=== PATIENT | female | born 1945 | race Hispanic/Latino ===

== ENCOUNTER 2020-10-10 11:39 | Emergency (ER) | payer MEDICARE ==
[2020-10-10] MEDS ORDERED: niCARdipine DRIP 40 MG/200 ML BAG IV ONE (12:11)
--- NOTE | 2020-10-10 12:18 | Cat Scan Report ---
CT head/brain wo con INDICATION / CLINICAL INFORMATION: 74 years Female; MAIN. TECHNIQUE: Routine CT head without contrast. All CT scans at this location are performed using CT dos e reduction for ALARA by means of automated exposure control. COMPARISON: None. FINDINGS: BRAIN / INTRACRANIAL CONTENTS: There is acute hematoma centered within the right paramedian cerebellu m measuring 3.8 cm AP by 3.7 cm transverse in greatest dimensions. There is notable a surrounding panda ma and mass effect with effacement of the fourth ventricle and right quadrigeminal cistern. There als o appears be component of hemorrhage extending within the fourth ventricle as well as the foramen of Luschka. Again, no previous exams are available for comparison. There is mild prominence of the later al and third ventricles and continued follow-up would be recommended to exclude developing hydrocepha cal. The hemorrhage may be on a hypertensive basis given the location. 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 There is milder degree of cerebral atrophy. ORBITS: No significant abnormality of visualized orbits. SINUSES / MASTOIDS: No significant abnormality in the visualized paranasal sinuses or mastoid air jane ls. CRANIOCERVICAL JUNCTION: No significant abnormality. ADDITIONAL FINDINGS: None. IMPRESSION: 1. There is acute hematoma within the cerebellum with associated mass effect and intraventricular ext ension as detailed above. 2. Is milder prominence of the lateral and third ventricles on this single exam and continued follow- up exam would be recommended to exclude developing hydrocephalus. The findings represent a positive clinical test result and were discovered at 1109 AM and called to Verónica Lorenzo in the ER at 11:11 AM Central standard time. Signer Name: Zhao Greco MD Signed: 10/10/2020 12:14 PM Workstation Name: [id number]
--- NOTE | 2020-10-10 12:24 | Emergency Department Report ---
ED Neuro Deficit HPI - General Stated Complaint: POSS CVA Time Seen by Provider: 10/10/20 11:44 - History of Present Illness Initial Comments: This is a 74-year-old female who fell approximately 4 times at home. She was found to be severely hypertensive in the field complaining of a headache. With this information I called a code stroke to expedite her work-up. At the door conducting a quick NIHSS, the patient told me she had some neck pain and diffuse headache. She seems to have a left gaze preference and some mild drift of her left leg which she states is chronic. She has bilateral Dupuytren's contractures. She did not complain of acute weakness or numbness of her extremities nor face. She referred no other specific symptoms. It appears that she may be noncompliant with her blood pressure medicine. History was abbreviated to expedite her transfer to CT. The patient denied syncope/passing out. But she is giving a somewhat vague history. She denies any injury. While she states that she does have some diffuse neck pain she denies actually hitting her head or jerking her neck. I walked to CT and found that the patient did have an intracranial hemorrhage which was suspected. I was told by nursing that the neurology consult had requested CTA studies. As such, this was ordered while the patient was on the table. Meanwhile I paged [facility] to begin the transfer process. CT upon my reading indicated that the patient had had a right cerebral hemorrhage with some extension into the fourth ventricle and perhaps early signs of intracranial hypertension. Later the radiologist called and verified those findings stating that the dimensions of the bleed were 3.7 x 3.8 with very early signs of hydrocephalus. -: This morning Location: altered Presenting Symptoms: Present: Altered Mental Status History of same: No Place: home Severity: moderate Quality: constant Improves With: none Worsens With: none On Anticoagulants: No Context: other (Uncertain onset but headache noted at about 9 AM) Associated Symptoms: denies other symptoms Treatments Prior to Arrival: none - Related Data Home Medications: Home Medications Medication Instructions Recorded Confirmed Last Taken No Known Home Medications [No 10/10/20 10/10/20 Unknown Reported Home Medications] Allergies/Adverse Reactions: Allergies Allergy/AdvReac Type Severity Reaction Status Date / Time No Known Allergies Allergy Verified 10/10/20 12:44 ED Review of Systems ROS: Stated complaint: POSS CVA Other details as noted in HPI Comment: Unobtainable due to pts medical conditions (No other specific symptoms mentioned, limited secondary to mental status) ED Past Medical Hx - Past Medical History Hx Hypertension: Yes - Surgical History Past Surgical History?: Yes Additional Surgical History: Patient had a left lower extremity surgery of some sort 5 years ago per paramedics. - Family History Family history: other (Unknown) - Social History Substance Use Type: None (Unlikely) - Medications Home Medications: Home Medications Medication Instructions Recorded Confirmed Last Taken Type No Known Home Medications [No 10/10/20 10/10/20 Unknown History Reported Home Medications] ED Neuro Physical Exam - General Limitations: Altered Mental Status (Patient is noted to have memory deficit) General appearance: other (Tendency to close eyes but normally responsive. GCS 14-15) Suspected Stroke: Yes - Head Head exam: Present: atraumatic - Eye Eye exam: Present: normal appearance. Absent: scleral icterus - ENT ENT exam: Present: normal exam, mucous membranes moist - Neck Neck exam: Present: full ROM (Reasonably full for age). Absent: tenderness, meningismus - Respiratory Respiratory exam: Present: normal lung sounds bilaterally. Absent: respiratory distress - Cardiovascular Cardiovascular Exam: Present: regular rate, normal rhythm. Absent: systolic murmur, diastolic murmur, rubs, gallop - GI/Abdominal GI/Abdominal exam: Present: soft, normal bowel sounds. Absent: distended, tenderness, guarding, rebound - Extremities Exam Extremities exam: Present: other - Back Exam Back exam: Present: other (Unable to examine) - Neurological Exam Neurological exam: Present: altered (Poor memory) - NIHSS Assessment Interval: Baseline 1a. Level of Consciousness: alert/keenly responsive 1b. LOC Questions: answers both correctly 1c. LOC Commands: performs tasks correctly 2. Best Gaze: partial gaze palsy (Definite tendency to look to the left but no extraocular motor palsy) 3. Visual: no visual loss 4. Facial Palsy: normal symmetrical movement 5b. Motor Arm Right: no drift 5a. Motor Arm Left: no drift 6a. Motor Leg Left: drift (Patient states this is chronic) 6b. Motor Leg Right: no drift 7. Limb Ataxia: absent 8. Sensory: normal 9. Best Language: no aphasia 10. Dysarthria: normal 11. Extinction/Inattention: no abnormality Total Score: 2 Stroke Severity: Minor Stroke ED Course Vital Signs 10/10/20 10/10/20 10/10/20 12:22 12:30 12:46 Temperature Pulse Rate 108 H 98 H 101 H Respiratory 16 18 19 Rate Blood Pressure 232/144 193/112 O2 Sat by Pulse 95 96 97 Oximetry 10/10/20 13:00 Temperature 98 F Pulse Rate 121 H Respiratory 20 Rate Blood Pressure 228/130 O2 Sat by Pulse 97 Oximetry - Reevaluation(s) Reevaluation #1: Obviously the patient requires transfer to a neurosurgical facility. I spoke with Dr. Aden Clark who very graciously accepted this patient for transfer. Air ambulance was immediately requested. The [facility] were [facility] to [facility]. Additionally, I sent videos of the axial and coronal CTs to Dr. Clark. I have thus far been unable to contact any family member. The patient does not recall her own cell phone nor her son Lalo cell phone. We are still trying to locate a family member for Dr. Clark. Patient was given labetalol initially and then started on a Cardene drip with a target of approximately [address] Clark did not request any further interventions. On reassessment the patient her GCS is still 14-15. Mental status is reasonably but not crisply alert. She does have a tendency to close her eyes but follows commands well. 10/10/20 13:11 Reevaluation #2: 10/10/20 13:15 Patient noted to have a normal coagulation profile. In addition her available labs show no need for acute interventions. Transfer is proceeding without problem. I did decide to give the patient a prophylactic dose of 1 g of Keppra. - Lab Data Result diagrams: 10/10/20 12:35 10/10/20 12:35 Lab Results 10/10/20 10/10/20 10/10/20 Range/Units 12:35 12:35 12:35 WBC 13.4 H (4.5-11.0) K/mm3 RBC 4.68 (3.65-5.03) M/mm3 Hgb 14.2 (10.1-14.3) gm/dl Hct 41.1 (30.3-42.9) % MCV 88 (79-97) fl MCH 30 (28-32) pg MCHC 34 (30-34) % RDW 13.8 (13.2-15.2) % Plt Count 324 (140-440) K/mm3 Seg Neutrophils % Salvage Laborer PT 12.2 (12.2-14.9) Sec. INR 0.92 (0.87-1.13) APTT 28.6 (24.2-36.6) Sec. Thrombin Time 17.6 (15.1-19.6) Sec. Sodium 134 L (137-145) mmol/L Chloride 94.8 L (98-107) mmol/L Carbon Dioxide 29 (22-30) mmol/L Anion Gap 14 mmol/L BUN 15 (7-17) mg/dL Glucose 140 H (65-100) mg/dL Calcium 9.4 (8.4-10.2) mg/dL Magnesium (1.7-2.3) mg/dL Troponin T 0.010 (0.00-0.029) ng/mL 10/10/20 Range/Units 12:35 WBC (4.5-11.0) K/mm3 RBC (3.65-5.03) M/mm3 Hgb (10.1-14.3) gm/dl Hct (30.3-42.9) % MCV (79-97) fl MCH (28-32) pg MCHC (30-34) % RDW (13.2-15.2) % Plt Count (140-440) K/mm3 Seg Neutrophils % PT (12.2-14.9) Sec. INR (0.87-1.13) APTT (24.2-36.6) Sec. Thrombin Time (15.1-19.6) Sec. Sodium (137-145) mmol/L Chloride (98-107) mmol/L Carbon Dioxide (22-30) mmol/L Anion Gap mmol/L BUN (7-17) mg/dL Glucose (65-100) mg/dL Calcium (8.4-10.2) mg/dL Magnesium 1.70 (1.7-2.3) mg/dL Troponin T (0.00-0.029) ng/mL Laboratory Results - last 24 hr 10/10/20 10/10/20 10/10/20 12:35 12:35 12:35 WBC 13.4 H RBC 4.68 Hgb 14.2 Hct 41.1 MCV 88 MCH 30 MCHC 34 RDW 13.8 Plt Count 324 Seg Neutrophils % Salvage Laborer PT 12.2 INR 0.92 APTT 28.6 Thrombin Time 17.6 Sodium 134 L Chloride 94.8 L Carbon Dioxide 29 Anion Gap 14 BUN 15 Glucose 140 H Calcium 9.4 Magnesium Troponin T 0.010 10/10/20 12:35 WBC RBC Hgb Hct MCV MCH MCHC RDW Plt Count Seg Neutrophils % PT INR APTT Thrombin Time Sodium Chloride Carbon Dioxide Anion Gap BUN Glucose Calcium Magnesium 1.70 Troponin T - EKG Data -: EKG Interpreted by Me EKG shows normal: sinus rhythm Rate: normal Interpretation: other (Patient noted to have diffuse and "roller coaster" type T wave inversions consistent with intracranial hemorrhage) - Radiology Data Radiology results: image reviewed (No acute process chest x-ray) Critical Care Time: Yes Critical care time in (mins) excluding proc time.: 85 Critical care attestation.: If time is entered above; I have spent that time in minutes in the direct care of this critically ill patient, excluding procedure time. ED Disposition Clinical Impression: Cerebral hemorrhage Hydrocephalus Qualifiers: Hydrocephalus type: unspecified Qualified Code(s): G91.9 - Hydrocephalus, unspecified Disposition: DC/TX-70 ANOTHER TYPE HLTHCARE Is pt being admited?: No Does the pt Need Aspirin: No Condition: Stable Referrals: CHRIS ANTONIO MD [Primary Care Provider] - 3-5 Days Time of Disposition: 13:17
--- NOTE | 2020-10-10 12:24 | Cat Scan Report ---
CT cervical spine wo con INDICATION / CLINICAL INFORMATION: 74 years Female; STROKE. TECHNIQUE: Axial CT images of the cervical spine were obtained. Sagittal and coronal reformatted images were pr oduced. All CT scans at this location are performed using CT dose reduction for ALARA by means of aut omated exposure control. COMPARISON: None available. FINDINGS: Alignment: There is slight reversal of the cervical lordosis and curvature of the cervical spine, con vex toward the right. There is also mild rotation at C1 to which may be related to the positioning. T here is otherwise no significant spondylolisthesis. VERTEBRAE: There are altered level mild degenerative endplate changes involving the cervical spine. T he findings are most consistent with ununited anterior and posterior arches of C1 with well corticate d margins. The motion degrades the image quality. However, there is no clear CT evidence of acute fra cture involving the cervical spine. INTRAVERTEBRAL DISCS: The facet and uncovertebral joint hypertrophy at C3-4 result in moderate to mar ked right foraminal narrowing at. Moderate narrowing is seen on the left. There is similar foraminal narrowing at C4-5. There is moderate to marked neural foraminal narrowing bilaterally at C5-6. The central disc bulge ef faces the ventral subarachnoid space. There is mild posterior spondylosis at C6-7. There is marked le ft neural foraminal narrowing. PARASPINAL SOFT TISSUES: No prevertebral soft tissue fluid collections are identified. The focus of a ir projected along the right subclavian vein is likely related to IV access. ADDITIONAL FINDINGS: None. IMPRESSION: 1. There are multilevel degenerative the changes involving the cervical spine as detailed above. 2. There is mild curvature the cervical spine with motion artifact. However, there is no clear CT sharmin dence of acute fracture. Signer Name: Zhao Greco MD Signed: 10/10/2020 12:19 PM Workstation Name: [id number]
--- NOTE | 2020-10-10 12:54 | Cat Scan Report ---
CT angio neck INDICATION / CLINICAL INFORMATION: 74 years Female; MAIN. TECHNIQUE: Thin cut axial images obtained through the head during IV bolus contrast administration. S agittal, coronal, and 3 plane MIP reconstructions performed by the technologist. NASCET type criteria used evaluate stenoses. All CT scans at this location are performed using CT dose reduction for ALAR A by means of automated exposure control. COMPARISON: None available. FINDINGS: CAROTID ARTERIES: There is mild calcification involving right carotid bifurcation. There is also mild plaque involving proximal left ICA. However, there is no significant stenosis by NASCET type criteri a. VERTEBRAL ARTERIES: The motion and beam hardening degrade the image quality. However, the vertebral a rteries appear to demonstrate appropriate caliber without ossific and focal stenosis. The right verte bral artery is dominant. ARCH: There is mild calcification involving the aortic arch. However, there is no significant stenosi s of the origins of the arch vessels. ADDITIONAL FINDINGS: Remainder of the surrounding soft tissues are grossly normal. IMPRESSION: There is milder atherosclerotic plaque involving carotid bifurcations at. However, there is no signif icant stenosis of the carotid arteries by NASCET criteria. Signer Name: Zhao Greco MD Signed: 10/10/2020 12:49 PM Workstation Name: [id number]
[2020-10-10 12:59] LABS: Hematocrit 41.1 % (30.3-42.9); Hemoglobin 14.2 gm/dl (10.1-14.3); Mean Corpuscular HGB Conc 34 % (30-34); Mean Corpuscular Volume 88 fl (79-97); Platelet Count 324 K/mm3 (140-440); Red Blood Count 4.68 M/mm3 (3.65-5.03); Red Cell Distribution Width 13.8 % (13.2-15.2)
--- NOTE | 2020-10-10 13:00 | Emergency Department Report ---
Blank Doc - Documentation Documentation: [facility] Consult Note # Demographics Consult Type: Acute Stroke Level 2 (4.5-24 hrs) Patient Location: Emergency Room First Name: Mariaelena Last Name: Marybel Date of : 1945 Age: 74 Gender: Female Time of Initial Page ( Time): 10/10/2020, 11:44 Time of Return Call ( Time): 10/10/2020, 11:44 # HPI History: 74yo F present with decreased LOC. pt has been havign frequent falls, noted to have wekaness this mroning. last well was last night. BPs elevated Last Known Normal: I have collected independent history specific to time last normal or last known well. We have collaborated with the provider and at this time, we have the most current timeline with the information that is available. # Scores Time of exam and NIHSS ( Time): 10/10/2020, 12:17 Level of Consciousness 1a: [0] = Alert; keenly responsive LOC Questions 1b: [0] = Answers both questions correctly LOC Commands 1c: [0] = Performs both tasks correctly Best Gaze 2: [0] = Normal Visual 3: [0] = No visual loss Facial Palsy 4: [2] = Partial paralysis Motor Arm Left 5a: [1] = Drift Motor Arm Right 5b: [0] = No drift Motor Leg Left 6a: [3] = No effort against gravity Motor Leg Right 6b: [0] = No drift Limb Ataxia 7: [0] = Absent Sensory 8: [0] = Normal Best Language 9: [0] = No aphasia Dysarthria 10: [1] = [id number]-gc-[id number] dysarthria Extinction and Inattention 11: [0] = No abnormality NIHSS Total: 7 # Data Head CT: hemorrhage, per radiologist read # Assessment Impression: Hemorrhagic Stroke # Plan Thrombolytic/Intervention: NOT IV Thrombolytic or IA Intervention Thrombolytic Exclusion (< 3 hour window): ICH Intraarterial Exclusion: ICH Target Blood Pressure: SBP < 160 Labs: lipid panel Imaging: (urgency: routine admission): CT Angiogram Head and CT Angiogram Neck, MRI Brain with AND without contrast Diagnostic Test: echo without bubble study Therapy/Evaluation: NPO until swallow evaluation, PT/OT evaluation, speech/swallow consultation DVT Prophylaxis: SCD Other: consult neurosurgery, If patient has any neurological deterioration please call me back immediately, telemetry monitoring, I have discussed my recommendations with the referring provider Disposition: admit # Logistics Telemedicine: Interactive 2 way audio and visual telecommunication technology was utilized during this visit
--- NOTE | 2020-10-10 13:01 | XRay Report ---
CHEST 1 VIEW 10/10/2020 12:29 PM INDICATION / CLINICAL INFORMATION: hypertension. COMPARISON: None available. FINDINGS: SUPPORT DEVICES: None. HEART / MEDIASTINUM: There is enlargement of the mediastinum suggesting tortuosity of the thoracic ao rta LUNGS / PLEURA: Mild increased interstitial prominence in the lungs may be chronic. Small areas of no dularity may represent granulomas change. No pneumothorax. Signer Name: Eloy Frederick MD Signed: 10/10/2020 12:57 PM Workstation Name: [email or web address]
--- NOTE | 2020-10-10 13:03 | Cat Scan Report ---
CT angio head INDICATION / CLINICAL INFORMATION: 74 years Female; MAIN. TECHNIQUE: Thin cut axial images obtained through the head during IV bolus contrast administration. S agittal, coronal, and 3 plane MIP reconstructions performed by the technologist. NASCET type criteria used evaluate stenoses. Automated exposure control utilized for radiation reduction purposes. COMPARISON: None available. FINDINGS: INTERNAL CAROTID ARTERIES: There is a small focus of calcification involving distal right internal ca rotid artery. There is no significant stenosis of the ICAs by NASCET criteria. VERTEBROBASILAR SYSTEM: There the findings correlate with the earlier CT demonstrating the hematoma c entered within the right cerebellum with associated displacement of the adjacent vessels there is dev elopmental hypoplasia the distal left vertebral artery. However, there is no is no significant focal narrowing of the vertebrobasilar system. CEREBRAL ARTERIES: There is mild diffuse irregularity of the intracranial vessels which is nonspecifi c though indicative of mild atherosclerotic disease. There is no significant focal stenosis or eviden ce of large vessel occlusion. ANEURYSM: None identified. ADDITIONAL FINDINGS: The dural venous sinuses appear to opacify with contrast. IMPRESSION: There is a hematoma within the right cerebellum which correlates with the earlier CT and results in d isplacement of the adjacent vessels. This mild diffuse irregularity of the intracranial vessels indicative of mild atherosclerotic disease as described. However, there is no clear evidence of significant focal stenosis. Signer Name: Zhao Greco MD Signed: 10/10/2020 12:58 PM Workstation Name: [id number]
[2020-10-10] MEDS ORDERED: levETIRAcetam 1000 MG/NS 0.75% 1,000 MG/100 ML BAG IV ONE (13:06)
[2020-10-10 13:09] LABS: INR 0.92 (0.87-1.13)
[2020-10-10 13:10] LABS: Partial Thromboplastin Time 28.6 Sec. (24.2-36.6); Thrombin Time 17.6 Sec. (15.1-19.6)
[2020-10-10 13:11] LABS: Blood Urea Nitrogen 15 mg/dL (7-17); Calcium 9.4 mg/dL (8.4-10.2); Hemolysis Index 34
[2020-10-10 13:20] LABS: Alanine Aminotransferase 7 units/L (7-56); Albumin 4.2 g/dL (3.9-5)
[2020-10-10 13:31] LABS: Platelet Estimate Consistent w Auto; RBC Morphology Normal; Total Cells Counted 100
[2020-10-10 13:46] VITALS: BP 153/87
[2020-10-10 14:12] LABS: BUN/Creatinine Ratio 25; Bilirubin,Direct < 0.2 mg/dL (0-0.2)
--- NOTE | 2020-10-11 11:29 | Electrocardiograph Report ---
[facility] Test Date: 2020-10-10 Test Time: 12:22:07 Pat Name: GIOVANI HARP Department: Room: Gender: F Supervisor [employer]: ANASTACIA : 1945 Requested By: INDER BLAKE Order Number: [id number] Reading MD: James Ochoa Measurements Intervals [place] Rate: 105 P: 82 ID: [id number] QRS: -77 QRSD: 139 T: -39 QT: 404 QTc: 534 Interpretive Statements possible atrial flutter2:1 Biatrial enlargement Right bundle branch block No previous ECG available for comparison Electronically Signed On 10-11-2020 11:29:30 EDT by James Ochoa
== END 2020-10-10 13:30 | disposition other institution (70) ==
LOC: ED 11:39
DX: I61.9 Nontraumatic intracerebral hemorrhage, unspecified (principal); G91.9 Hydrocephalus, unspecified; I10 Essential (primary) hypertension; Z98.890 Other specified postprocedural states
CPT/HCPCS: 36415; 70450; 70496; 70498; 71045; 72125; 80048; 80076; 83735; 83880; 84484; 85007; 85025; 85610; 85670; 85730; 93005; 96365; 96375; 99291; 99292; J1953; Q9967